=== PATIENT | female | born 1995 | race African-American/Black ===

== ENCOUNTER 2016-05-27 01:04 | Emergency (ER) | payer OTHER ==
[~2016-05-27] VITALS: Ht 170.2 cm; Wt 61.0 kg
[2016-05-27 01:06] VITALS: BP 137/79; PULSE 82; RESP 14; TEMP 97.5; O2SAT 99
--- NOTE | 2016-05-27 02:59 | PD ---
HPI Chief Complaint: Engineering Supervisor Problem/Complaint Time Seen by Provider: 02:19 Travel History International Travel<30 days: No Contact w/Intl Traveler<30days: No Traveled to known affect area: No History of Present Illness HPI 21-year-old female presents to the emergency department for complaint of possible urinary tract infection vaginal discharge symptoms present 2 weeks. Patient is sexually active does take contraceptive control pills and states last period was April 17. Patient did not have a normal period in April. . Patient has noted increased urinary frequency and is concerned about urinary tract infection. Patient denies fever chills nausea vomiting flank pain generalized abdominal pain and states vaginal discharge has decreased. PFSH Past Medical History Narrative Medical Negative past medical history negative/surgical history no tobacco use nursing notes reviewed Medical History: Denies Significant Hx ?: Not LMP: 04/11/16 Social History Alcohol Use: No Tobacco Use: No Substance Use: No Allergies-Medications (Allergen,Severity, Reaction): Coded Allergies: No Known Allergies (Unverified , 05/27/16) Reported Meds & Prescriptions Reported Meds & Active Scripts Active No Active Prescriptions or Reported Medications Narrative Medication control pills Review of Systems Except as stated in HPI: all other systems reviewed are Neg Physical Exam Narrative GENERAL: Well-developed well-nourished female in no acute distress no respiratory distress SKIN: Warm and dry. HEAD: Normocephalic. EYES: No scleral icterus. No injection or drainage. NECK: Supple, trachea midline. No JVD or lymphadenopathy. CARDIOVASCULAR: Regular rate and rhythm without murmurs, gallops, or rubs. RESPIRATORY: Breath sounds equal bilaterally. No accessory muscle use. GASTROINTESTINAL: Abdomen soft, non-tender, nondistended. Pelvic exam: Normal external exam no lesions induration or erythema; speculum exam scant white case eating discharge no tissue no clots cervical os closed; bimanual exam no adnexal mass or tenderness no uterine enlargement or cervical motion tenderness MUSCULOSKELETAL: No cyanosis, or edema. BACK: Nontender without obvious deformity. No CVA tenderness. Data Data Last Documented VS Vital Signs Date Time Temp Pulse Resp B/P Pulse Ox O2 Delivery O2 Flow Rate FiO2 05/27/16 03:55 76 18 132/81 100 05/27/16 01:06 97.5 Room Air Orders Gc And Chlamydia Pcr (05/27/16 02:19) Wet Prep Profile (05/27/16 02:19) Urinalysis - C+S If Indicated (05/27/16 02:19) Ed Urine Pregnancytest Poc (05/27/16 02:19) Labs Laboratory Tests Test 05/27/16 05/27/16 02:13 02:32 Clue Cells (Wet Prep) NONE SEEN Vaginal Trichomonas (Wet Prep) NONE SEEN Vaginal Yeast (Wet Prep) NONE SEEN Urine Color LIGHT-YELLOW Urine Turbidity CLEAR Urine pH 6.5 Urine Specific [place] 1.015 Urine Protein NEG mg/dL Urine Glucose (UA) NEG mg/dL Urine Ketones NEG mg/dL Urine Occult Blood NEG Urine Nitrite NEG Urine Bilirubin NEG Urine Urobilinogen LESS THAN 2.0 MG/DL Urine Leukocyte Esterase NEG Urine RBC LESS THAN 1 /hpf Urine WBC 2 /hpf Urine Squamous Epithelial <1 /hpf Cells Urine Mucus FEW /lpf Microscopic Urinalysis Comment CULT NOT INDICATED MDM Medical Decision Making Medical Screen Exam Complete: Yes Emergency Medical Condition: Yes Medical Record Reviewed: Yes Interpretation(s) [id number] hCG: Negative Wet prep negative Urinalysis culture not indicated Differential Diagnosis Vaginal discharge, STI, UTI, Narrative Course Specimens collected and sent for resulting Diagnosis Primary Impression: Urinary frequency Referrals: Primary Care Physician call for appointment Patient Instructions: General Instructions Additional Instructions: Increase fluid hydration Follow-up with primary care provider Return to the emergency department for any concerns or change in condition Scripts No Active Prescriptions or Reported Meds Disposition: 01 DISCHARGE HOME Condition: Stable Mariana Demarco MD May 27, 2016 02:59
[2016-05-27 03:17] LABS: BLOOD, URINE NEG (NEG); COMMENT (UR) CULT NOT INDICATED; CULTURE IF INDICATED CULT NOT INDICATED; GLUCOSE,URINE NEG (NEG); KETONE, URINE NEG (NEG); MUCUS URINE FEW /lpf (OCC); NITRITE,URINE NEG (NEG); PH, URINE 6.5 (5.0-8.5); SQUAMOUS EPITHELIAL CELL URINE <1 /hpf (0-5); URINE COLOR LIGHT-YELLOW (YELLW/STRAW)
[2016-05-27 03:55] VITALS: BP 132/81
[2016-05-27 04:19] LABS: CHLAMYDIA PCR NOT DETECTED (NOT DETECT); NEISSERIA PCR NOT DETECTED (NOT DETECT)
== END 2016-05-27 03:58 | disposition home or self-care (01) ==
LOC: NEPC 01:04
DX: R35.0 Frequency of micturition (principal)
CPT/HCPCS: 81001; 84703; 87210; 87491; 87591; 99283